=== PATIENT | female | born 1980 | race African-American/Black ===

== ENCOUNTER → 2016-06-26 | Outpatient (CLI) | payer BC ==
[~2016-06-26] VITALS: Ht 165.1 cm; Wt 113.4 kg
[~2016-06-26] MED LIST: AMOXICILLIN500 M1 PO; ELOCON 0.1% CRE15 GM TP; ERGOCALCIF50000 UNIT PO; EXTRA STRENGTH500 M1 PO; MIRENA52 MG IY; Tylenol PM PO; VITAMIN B-125000 MCG SL; VITAMIN D35000 UNIT PO; Valium PO; Vicodin,Norco 5/325 PO; ZOLOFT50 MG PO; Zestoretic,Prinzide PO; [UNRECOGNIZED DRUG - OTHER] PO; celeBREX PO
[2016-07-02 10:39] LABS: INTERNAL CONTROL VALID? YES
== END | disposition home or self-care (01) ==
LOC: AMB 06-17 11:30
PROVIDERS: Anesthesiology
PROC: 0DJ08ZZ Inspection of Upper Intestinal Tract, Via Natural or Artificial Opening Endoscopic (ICD-10-PCS; principal; 2016-06-26)
DX: K95.89 Other complications of other bariatric procedure (principal); K21.9 Gastro-esophageal reflux disease without esophagitis; Z98.84 Bariatric surgery status
CPT/HCPCS: 84703; 93005